=== PATIENT | male | born 1965 | race Caucasian/White ===

== ENCOUNTER 2021-06-30 13:13 | Emergency (ER) | payer BC ==
[~2021-06-30] VITALS: Ht 172.7 cm; Wt 77.1 kg
[~2021-06-30 13:13] MED LIST: KEFLEX500 MG PO; NORCO 5-325 TA1 EACH PO
[2021-06-30] MEDS ORDERED: AMBIEN5 MG PO (14:25)
== END 2021-06-30 14:30 | disposition home or self-care (01) ==
LOC: ED 13:13
DX: U07.1 COVID-19 (principal); J12.82 Pneumonia due to coronavirus disease 2019
CPT/HCPCS: 99284

== ENCOUNTER 2021-07-30 11:36 | Day surgery (SDC) | payer BC ==
[~2021-07-30] VITALS: Ht 172.7 cm; Wt 80.3 kg
[~2021-07-30 11:36] MED LIST changes: +AMBIEN5 MG PO
[2021-07-30] MEDS ORDERED: MELOXICAM15 MG PO (11:57)
[2021-07-30] MEDS ORDERED: TRAMADOL HCL50 MG PO (11:57)
--- NOTE | 2021-07-30 13:54 | NUR ---
07/30/21 1354 Fiorella Leyva 0003-PATIENT ARRIVED TO PACU AWAKE ON 2L NC RR EVEN DENIES PAIN OR NAUSEA. ENCOURAGED TO PASS GAS. HOB ELEVATED. REPOSITIONS SELF IN BED.
--- NOTE | 2021-07-30 19:09 | OR ---
[facility] [address], [place] [address] Signed DATE OF OPERATION: 07/30/2021 SURGEON: Barbara Wilson MD PREOPERATIVE DIAGNOSES: 1. Screening colonoscopy. 2. Family history of colon cancer (grandparents). POSTOPERATIVE DIAGNOSES: 1. Sigmoid diverticulosis. 2. Minimal internal hemorrhoidal change. 3. Thickened area of mucosa at rectosigmoid (biopsied). PROCEDURE: Total colonoscopy to cecum with biopsy of rectosigmoid. ANESTHESIA: Intravenous sedation; fentanyl 100 mcg, Versed 6 mg. INDICATION: This 55-year-old white man is a patient of VICKI Martinez in [place], [place]. He has family history of colon cancer in grandparents (his mother's parents), who lived in [place]. The patient has no symptoms of bleeding diarrhea or constipation currently. He has not undergone colonoscopy in the past. He is here for screening colonoscopy. He understands the risks of bleeding, infection, and perforation. FINDINGS: The prep was excellent. Complete colonoscopy was undertaken of the cecum without question. The ileocecal valve and appendiceal orifice were well identified and normal. He had significant diverticular changes of the sigmoid and left colon, but no sign of stricture. Retroflexed view did confirm internal hemorrhoidal changes. DESCRIPTION OF PROCEDURE: The patient was brought to the endoscopy suite and placed in lateral decubitus position, given intravenous sedation to the point of slurred speech and nystagmus with full cardiopulmonary monitoring. Digital rectal examination was normal including a normal prostate. An Olympus video colonoscope was passed in the rectum and manipulated throughout the colon noting diverticular change of the sigmoid and left colon. The scope was advanced beyond this ultimately to the cecum, which appeared normal. The ileocecal valve and appendiceal orifice were normal. The scope was withdrawn from that Electronically Signed By: BARBARA WILSON MD 07/30/21 1909 PATIENT NAME: BARBARA CORONA JR OPERATIVE REPORT DATE OF : 65 REPORT #: [id number] PHYSICIAN: BARBARA WILSON MD PCP: UMA AVILA REPORT IS CONFIDENTIAL AND NOT TO BE RELEASED WITHOUT AUTHORIZATION [facility] [address] [place], [place] [address] Signed point and examination throughout showed no sign of abnormality into the left colon where diverticula were once again seen including the sigmoid. At the rectosigmoid, junction was an area of prominent somewhat thickened mucosa, but not particularly adenomatous in appearance. Narrow band imaging showed no revealing characteristics. Nevertheless, given his family history, biopsies were obtained of this area. Retroflexed view was undertaken in the rectum showing minimal internal hemorrhoidal change. The scope was straightened, withdrawn, and removed and the patient was taken to the recovery room in good condition. CONCLUDING DIAGNOSES: 1. Sigmoid and left-sided diverticulosis. 2. Thickened area of rectosigmoid, biopsied. 3. Minimal internal hemorrhoids. PLAN: Recommend high-fiber diet. We would recommend repeat colonoscopy in no more than 10 years, given family history in secondary degree relatives anywhere between 5 and 10 years would be appropriate. He will return to the ongoing care of Uma Avila. If he has other problems, he will let me know. Barbara Wilson MD JM/MODL /[id number] cc: VICKI Martinez Copies: UMA AVILA ~ Electronically Signed By: BARBARA WILSON MD 07/30/21 1909 PATIENT NAME: BARBARA CORONA OPERATIVE REPORT DATE OF : 65 REPORT #: [id number] PHYSICIAN: BARBARA WILSON MD PCP: UAM AVILA REPORT IS CONFIDENTIAL AND NOT TO BE RELEASED WITHOUT AUTHORIZATION
--- NOTE | 2021-08-02 17:05 | PATH ---
[facility] [address] [facility] [place], [place] [address] Signed SPECIMEN(S): A RECTOSIGMOID BIOPSY SPECIMEN SOURCE: A. RECTOSIGMOID BIOPSY CLINICAL HISTORY: Screening colonoscopy, family history of colon CA, family history of breast CA. Postop Dx: Diverticulosis, thickening of rectosigmoid. MICROSCOPIC DESCRIPTION: Histologic sections of all submitted blocks are examined by light microscopy. These findings, together with the gross examination, support the pathologic diagnosis. FINAL PATHOLOGIC DIAGNOSIS: Rectosigmoid, biopsy: - No significant histopathologic alterations. COMMENT: The sections from the specimen are architecturally normal without crypt distortion. There is no acute or chronic inflammation. There is no evidence of microscopic colitis. There are no abnormal organisms or infiltrates. There is no evidence of polyps or neoplasia. TWK:vlg:[id number] GROSS DESCRIPTION: The specimen, labeled "JR, 1," and designated on the requisition "rectosigmoid," is received in formalin and consists of three multani soft tissue fragments that measure 0.2-0.3 cm in greatest dimension. The specimen is entirely submitted in cassette (A1). AT (under the direct supervision of a pathologist) The Gross Description was prepared using a voice recognition system. The report was reviewed for accuracy; however, sound-alike word errors, addition and/or deletions may occur. If there is any question about this report, please contact Client Services. PERFORMING LABORATORY: The technical component was performed by [employer] [facility], [address] [place] [id number] (Sewer And Drain Technician: Karen Harry MD; CLIA# [id number]). Professional interpretation was performed by [employer] [facility], [facility], [address] [place] [id number] (CLIA#: [id number]) PATIENT NAME: BARBARA CORONA PATHOLOGY DATE OF : 65 REPORT #: [id number] PHYSICIAN: PAULINE PATHOLOGY PCP: CLARIBEL LUCAS REPORT IS CONFIDENTIAL AND NOT TO BE RELEASED WITHOUT AUTHORIZATION [address] [place] [address] Signed Diagnostician: Yakov Inman MD Pathologist Electronically Signed 08/02/2021 Copies: ~ PATIENT NAME: BARBARA CORONA PATHOLOGY DATE OF : 65 REPORT #: [id number] PHYSICIAN: PAULINE PATHOLOGY PCP: CLARIBEL LUCAS REPORT IS CONFIDENTIAL AND NOT TO BE RELEASED WITHOUT AUTHORIZATION
== END 2021-07-30 14:18 | disposition home or self-care (01) ==
LOC: OPS 11:36 → DS 11:39 → OPS 13:00 → DS 13:00 → OPS 14:18
PROVIDERS: ATTEND Surgery
PROC: 0DBN8ZZ Excision of Sigmoid Colon, Via Natural or Artificial Opening Endoscopic (ICD-10-PCS; principal; 2021-07-30 13:00)
DX: Z12.11 Encounter for screening for malignant neoplasm of colon (principal); K57.30 Diverticulosis of large intestine without perforation or abscess without bleeding; K64.8 Other hemorrhoids; Z80.0 Family history of malignant neoplasm of digestive organs; Z80.3 Family history of malignant neoplasm of breast; Z86.16 Personal history of COVID-19
CPT/HCPCS: 99153; G0500; J2250; J3010; J7121